=== PATIENT | female | born 1995 | race Two or more races ===

== ENCOUNTER 2020-12-24 10:36 | Emergency (ER) | payer OTHER ==
[~2020-12-24] VITALS: Ht 160 cm; Wt 79.4 kg
== END 2020-12-24 17:57 | disposition home or self-care (01) ==
LOC: ER 10:36
DX: O20.0 Threatened abortion (principal); O26.851 Spotting complicating pregnancy, first trimester; O30.041 Twin pregnancy, dichorionic/diamniotic, first trimester; O34.11 Maternal care for benign tumor of corpus uteri, first trimester; O36.80X2 Pregnancy with inconclusive fetal viability, fetus 2; O26.891 Other specified pregnancy related conditions, first trimester; R10.2 Pelvic and perineal pain; Z3A.01 Less than 8 weeks gestation of pregnancy

== ENCOUNTER → 2021-01-28 | Outpatient (CLI) | payer OTHER | END | disposition home or self-care (01) | LOC: PRENATAL 08:00 | PROVIDERS: ATTEND Obstetrics & Gynecology Maternal & Fetal Medicine | DX: O34.11 Maternal care for benign tumor of corpus uteri, first trimester (principal); O36.80X2 Pregnancy with inconclusive fetal viability, fetus 2; O30.91 Multiple gestation, unspecified, first trimester; Z36.89 Encounter for other specified antenatal screening; Z3A.12 12 weeks gestation of pregnancy ==

== ENCOUNTER → 2021-03-24 | Outpatient (CLI) | payer OTHER | END | disposition home or self-care (01) | LOC: PRENATAL 08:00 | PROVIDERS: ATTEND Obstetrics & Gynecology Maternal & Fetal Medicine | DX: O35.0XX2 Maternal care for (suspected) central nervous system malformation in fetus, fetus 2 (principal); O35.3XX2 Maternal care for (suspected) damage to fetus from viral disease in mother, fetus 2; O98.512 Other viral diseases complicating pregnancy, second trimester; O26.852 Spotting complicating pregnancy, second trimester; O30.92 Multiple gestation, unspecified, second trimester; O34.12 Maternal care for benign tumor of corpus uteri, second trimester; Z36.89 Encounter for other specified antenatal screening; Z3A.20 20 weeks gestation of pregnancy ==

== ENCOUNTER → 2021-05-19 | Outpatient (CLI) | payer OTHER ==
[~2021-05-19] MED LIST: PRENATAL TABLE1 EAC1 PO
== END | disposition home or self-care (01) ==
LOC: PRENATAL 08:00
PROVIDERS: ATTEND Obstetrics & Gynecology Maternal & Fetal Medicine
DX: O26.843 Uterine size-date discrepancy, third trimester (principal); O34.13 Maternal care for benign tumor of corpus uteri, third trimester; O41.03X2 Oligohydramnios, third trimester, fetus 2; O36.5932 Maternal care for other known or suspected poor fetal growth, third trimester, fetus 2; Z36.89 Encounter for other specified antenatal screening; Z3A.28 28 weeks gestation of pregnancy

== ENCOUNTER → 2021-06-09 | Outpatient (CLI) | payer OTHER | END | disposition home or self-care (01) | LOC: PRENATAL 15:30 | PROVIDERS: ATTEND Obstetrics & Gynecology Maternal & Fetal Medicine | DX: O36.8132 Decreased fetal movements, third trimester, fetus 2 (principal); O35.0XX2 Maternal care for (suspected) central nervous system malformation in fetus, fetus 2; O26.843 Uterine size-date discrepancy, third trimester; O36.5932 Maternal care for other known or suspected poor fetal growth, third trimester, fetus 2; Z36.89 Encounter for other specified antenatal screening; Z3A.31 31 weeks gestation of pregnancy ==

== ENCOUNTER 2021-07-03 11:55 | Outpatient (CLI) | payer OTHER | END 2021-07-03 13:00 | disposition home or self-care (01) | LOC: PRENATAL 11:55 | PROVIDERS: ATTEND Obstetrics & Gynecology Maternal & Fetal Medicine | DX: O26.843 Uterine size-date discrepancy, third trimester (principal); O34.13 Maternal care for benign tumor of corpus uteri, third trimester; O41.03X2 Oligohydramnios, third trimester, fetus 2; O36.5932 Maternal care for other known or suspected poor fetal growth, third trimester, fetus 2; O30.93 Multiple gestation, unspecified, third trimester; Z36.89 Encounter for other specified antenatal screening; Z3A.34 34 weeks gestation of pregnancy ==

== ENCOUNTER 2021-07-09 10:38 | Inpatient (IN) | payer OTHER ==
[~2021-07-09] VITALS: Ht 162.6 cm; Wt 1.8 kg
[2021-07-09] MEDS ORDERED: PRENATAL TABLE1 EAC1 PO (14:08)
== END 2021-07-12 10:56 | disposition home or self-care (01) | DRG 785 ==
LOC: NST 10:38 → LDR 13:31 → O/R 21:04 → OB/GYN 07-10 00:22 → O/R 07-10 00:27 → OB/GYN 07-10 00:43
PROVIDERS: ADMIT Obstetrics & Gynecology Obstetrics; ATTEND Obstetrics & Gynecology Obstetrics
PROC: 0UB70ZZ Excision of Bilateral Fallopian Tubes, Open Approach (ICD-10-PCS; 2021-07-09)
PROC: 4A1HXFZ Monitoring of Products of Conception, Cardiac Rhythm, External Approach (ICD-10-PCS; 2021-07-09)
PROC: 10D00Z1 Extraction of Products of Conception, Low, Open Approach (ICD-10-PCS; principal; 2021-07-09 16:00)
DX: O60.14X2 Preterm labor third trimester with preterm delivery third trimester, fetus 2 (principal); O60.14X1 Preterm labor third trimester with preterm delivery third trimester, fetus 1; O30.043 Twin pregnancy, dichorionic/diamniotic, third trimester; Z30.2 Encounter for sterilization; Z37.2 Twins, both liveborn; Z3A.35 35 weeks gestation of pregnancy